=== PATIENT | female | born 1995 | race Caucasian/White ===

== ENCOUNTER 2018-02-13 20:43 | Emergency (ER) | payer BC, MEDICAID ==
[2018-02-13 21:34] LABS: SQUAMOUS EPITHIAL 1 /hpf (0-5); URINE BACTERIA OCC (<OCC); URINE BILIRUBIN NEGATIVE (NEGATIVE); URINE BLOOD 3+ (NEGATIVE); URINE CLARITY Clear (Clear); URINE COLOR Straw (YELLOW); URINE GLUCOSE (UA) NORMAL (Normal); URINE LEUKOCYTE ESTERASE 1+ Leu/uL (Negative); URINE PROTEIN NEGATIVE (NEGATIVE); URINE UROBILINOGEN NORMAL mg/dL (0.2-1.0)
--- NOTE | 2018-02-13 21:48 | C.PDOC ---
History Of Present Illness 22 year old female patient presents to the ER with c/o intermittent dysuria associated with lower back pain and fever. Patient reports she has had this for 1.5 months. Patient has seen PMD who gave her macrobid for x10 days. Symptoms improved, but came back. Patient states she then went to OBGYN who gave her an unknown abx which initially helped, then symptoms returned yesterday. Other associated symptom includes occasional vomiting. Patient denies nausea, diarrhea and abdominal pain, no vaginal bleeding or discharge. . Time Seen by Provider: 02/13/18 21:13 Chief Complaint (Nursing): Back Pain History Per: Patient History/Exam Limitations: no limitations Onset/Duration Of Symptoms: Days (1.5 months), Intermittent Episodes, Persistent Current Symptoms Are (Timing): Still Present Past Medical History Reviewed: Historical Data, Nursing Documentation, Vital Signs Vital Signs: Last Vital Signs Temp 98.4 F 02/13/18 23:43 Pulse 88 02/13/18 23:43 Resp 18 02/13/18 23:43 BP 127/86 02/13/18 23:43 Pulse Ox 97 02/15/18 04:47 - Medical History PMH: Denies: Diabetes, Seizures, Sexually Transmitted Disease Surgical History: Tonsillectomy (T&A) Family History: States: Unknown Family Hx - Social History Hx Alcohol Use: Yes Hx Substance Use: No Review Of Systems Constitutional: Positive for: Fever ENT: Negative for: Ear Pain, Throat Pain Cardiovascular: Negative for: Chest Pain Respiratory: Negative for: Cough, Shortness of Breath Gastrointestinal: Positive for: Vomiting. Negative for: Nausea, Abdominal Pain , Diarrhea Genitourinary: Positive for: Dysuria Musculoskeletal: Positive for: Back Pain (low) Skin: Negative for: Rash Neurological: Negative for: Weakness, Numbness Physical Exam - Physical Exam Appears: Non-toxic, No Acute Distress Skin: Warm, Dry Head: Atraumatic, Normacephalic Eye(s): bilateral: Normal Inspection, PERRL, EOMI Oral Mucosa: Moist Neck: Supple Chest: No Tenderness Cardiovascular: Rhythm Regular, No Murmur, Other (tachycardic) Respiratory: No Decreased Breath Sounds, No Rales, No Rhonchi, No Wheezing Gastrointestinal/Abdominal: Soft, No Tenderness, No Distention, No Guarding, No Rebound Back: No CVA Tenderness, No Vertebral Tenderness, No Paraspinal Tenderness, Other (mild b/l lower back pain) Extremity: Normal ROM (x4) Neurological/Psych: Oriented x3, Normal Speech, Normal Motor, Normal Sensation, Normal Reflexes Gait: Steady ED Course And Treatment - Laboratory Results Result Diagrams: 02/13/18 21:47 02/13/18 21:47 O2 Sat by Pulse Oximetry: 97 (RA) Pulse Ox Interpretation: Normal Medical Decision Making Medical Decision Making: Impression: recurring dysuria with lower back pain and fever Plans: -- blood work -- tylenol -- urine cx -- UA Reassess: Patient is resting comfortably. Patient is tolerating PO. 2357 pt feeling much better. back pain resolved. will d/c pt with cipro and will f/u culture results to assess best antibiotic. pt phone number [phone] 02/14 early urine culture with gr neg rods, cfu >100,000. await antibiotic sensitivity Disposition Counseled Patient/Family Regarding: Studies Performed, Diagnosis, Need For Followup, Rx Given - Disposition Referrals: Deondre Stein MD [Medical Doctor] - Disposition: HOME/ ROUTINE Disposition Time: 23:58 Condition: IMPROVED Additional Instructions: Please take Cipro as prescribed. Drink increased water. Follow up with Dr Stein this week; let him know you were in the ER, and find out if he has any culture results. Find out name of antibiotic given to you by your staff counsel. Tylenol or Naproxen for fever or pain. Return to ER for any worse back pain, persistent fever, vomiting or any other concerns. Prescriptions: Ciprofloxacin [Cipro] 500 mg PO BID #14 tab Instructions: Urinary Tract Infection, Adult (DC) Forms: [facility] (Malay), General Discharge Instructions - Clinical Impression Clinical Impression: UTI (urinary tract infection) - PA / TELEPHONE SURVEYOR / Resident Statement / has reviewed & agrees with the documentation as recorded. - Scribe Statement The provider has reviewed the documentation as recorded by the Noelle Doherty Do All medical record entries made by the Scribe were at my direction and personally dictated by me. I have reviewed the chart and agree that the record accurately reflects my personal performance of the history, physical exam, medical decision making, and the department course for this patient. I have also personally directed, reviewed, and agree with the discharge instructions and disposition.
[2018-02-13 21:51] LABS: BASO % 0.3 % (0.0-2.0); EOS % 0.2 % (0.0-4.0); HEMOGLOBIN 13.6 g/dL (11.0-16.0); LYMPH # 0.8 K/uL (1.0-4.3); MEAN CELL VOLUME 82.8 fL (81.0-99.0); MEAN CORPUSCULAR HEMOGLOBIN 27.9 pg (27.0-31.0); MEAN CORPUSCULAR HGB CONC 33.6 g/dL (33.0-37.0); MEAN PLATELET VOLUME 8.3 fL (7.2-11.7); MONO # 0.7 K/uL (0.0-0.8); MONO % 6.7 % (0.0-10.0); NEUT # 8.5 K/uL (1.8-7.0); NEUT % 84.8 % (50.0-75.0); NRBC % 0.1 % (0.0-2.0); PLATELET COUNT 287 K/uL (130-400); RBC 4.89 Mil/uL (3.80-5.20); RED CELL DISTRIBUTION WIDTH 15.6 % (11.5-14.5)
[2018-02-13 22:05] LABS: ALB/GLOB RATIO 1.3 (1.0-2.1); ALBUMIN 4.2 g/dL (3.5-5.0); ALT/SGPT 39 U/L (9-52); AST/SGOT 19 U/L (14-36); BLOOD UREA NITROGEN 3 mg/dL (7-17); CALCIUM 9.6 mg/dl (8.6-10.4); GFR AFRICAN-AMERICAN > 60; GFR NON-AFRICAN AMERICAN > 60
[2018-02-13] MEDS ORDERED: Sodium Chloride 0.9% 1,000 ML IV ONE (22:06)
[2018-02-13] MEDS ORDERED: cefTRIAXone 2 GM in Sodium Chloride 0.9% 100 ML IVPB STA (22:07)
[2018-02-13 22:17] LABS: BANDS 1 % (0-2); LYMPHOCYTE 11 % (20-40); MONOCYTE 2 % (0-10); NEUTROPHIL 86 % (50-75); PLATELET ESTIMATE NORMAL (NORMAL); TOTAL CELLS COUNTED 100
[2018-02-13 23:43] VITALS: BP 127/86; PULSE 88; RESP 18; TEMP 98.4
[2018-02-14 00:01] VITALS: O2SAT 97
== END 2018-02-14 00:06 | disposition home or self-care (01) ==
LOC: C.ER 20:43
DX: N39.0 Urinary tract infection, site not specified (principal)
CPT/HCPCS: 80053; 81001; 85025; 87086; 96365; 99283; J0696; J7030